=== PATIENT | female | born 1985 | race Caucasian/White ===

== ENCOUNTER 2022-09-22 10:09 | Inpatient (IN) | payer OTHER ==
[2022-09-21 11:36] VITALS: BMI 28.3
[2022-09-22] MEDS ORDERED: CARBOPROST TROMETHAMINE 250 MCG/ML 1 ML AMP IM PRN (10:35)
[2022-09-22] MEDS ORDERED: OXYTOCIN 10 UNIT/ML 1 ML VIAL IM PRN (10:35)
[2022-09-22] MEDS ORDERED: miSOPROStoL 200 MCG TAB PO PRN (10:35)
[2022-09-22] MEDS ORDERED: TRANEXAMIC ACID IN NACL,ISO-OS 1,000 MG in EMPTY BAG 1 BAG IV PRN (10:35)
[2022-09-22] MEDS ORDERED: CITRIC ACID-SODIUM CITRATE 15 ML CUP PO ONE (10:35)
[2022-09-22] MEDS ORDERED: METHYLERGONOVINE 0.2 MG/ML 1 ML AMP IM PRN (10:35)
[2022-09-22 11:09] LABS: Basophils % (A) 0 %; Eosinophils % (A) 1 %; HCT 31.4 % (34.0-46.0); HGB 10.4 gm/dL (11.4-16.0); Hypochromasia Slight; Lymphocytes # (A) 1.4 k/uL (1.0-4.8); Lymphocytes % (A) 22 %; MCH 27.5 pg (25.0-35.0); MCV 83.2 fL (80.0-100.0); Mean Platelet Volume 9.2; Monocytes # (A) 0.3 k/uL (0-1.0); Monocytes % (A) 5 %; Neutrophils # (A) 4.7 k/uL (1.3-7.7); Neutrophils % (A) 70 %; Platelet Count 246 k/uL (150-450); RBC 3.78 m/uL (3.80-5.40); RDW 14.7 % (11.5-15.5); WBC 6.6 k/uL (3.8-10.6)
[2022-09-22] MEDS ORDERED: LACTATED RINGERS 1,000 ML IV SCH (11:45)
[2022-09-22] MEDS ORDERED: ePHEDrine 50 MG/ML 1 ML VIAL ONE (12:08)
[2022-09-22] MEDS ORDERED: ONDANSETRON 4 MG/2 ML VIAL ONE (12:08)
[2022-09-22] MEDS ORDERED: KETOROLAC 15 MG/ML 1 ML VIAL ONE (12:08)
[2022-09-22] MEDS ORDERED: MORPHINE SULFATE (PF) 0.3 MG/0.3 ML SYR ONE (12:08)
[2022-09-22] MEDS ORDERED: NALBUPHINE 10 MG/ML (10 ML MDV) ONE (12:08)
[2022-09-22] MEDS ORDERED: OXYTOCIN 30 UNITS/500 ML NS BAG IV ONE (12:08)
--- NOTE | 2022-09-22 13:16 | P.HPOB ---
History of Present Illness H&P Date: 09/22/22 Chief Complaint: Scheduled primary section Mrs. Balbuena is a 31-year-old at 37 weeks and 0 days by LMP consistent with 9 week ultrasound who presents for scheduled primary lower transverse section for chelsea breech presentation and intrahepatic cholestasis of . She developed ICP at 24 weeks with bile acids at 14.6. Pruritus was managed with daily ursodiol 3 times a day and labs were trended every 4 weeks. Prior to delivery bile acids were 5.3 after several months of ursodiol use. The has been otherwise uncomplicated. After discussing the risks and benefits of external cephalic version versus section, the patient declined ECV in favor of a primary section. Obstetric history: 1 prior Maternal serologies: blood type O positive, antibody negative, rubella immune, VDRL non-reactive, HBsAg negative, HIV negative, 1 hour GTT 163, 3 hour GTT wnl, GBS positive. Past Medical History Past Medical History: Liver Disease Additional Past Medical History / Comment(s): Cholestatsis of . History of Any Multi-Drug Resistant Organisms: None Reported Additional Past Surgical History / Comment(s): LEEP Procedure. Past Anesthesia/Blood Transfusion Reactions: Previous Problems w/ Anesthesia Additional Past Anesthesia/Blood Transfusion Reaction / Comment(s): "Very sensitive to Labor Epidural, almost crashed, needed lower dose". "Mother is also very sensitive to anesthesia". Past Psychological History: No Psychological Hx Reported Smoking Status: Never smoker Past Alcohol Use History: Occasional Additional Past Alcohol Use History / Comment(s): No alcohol use during . Past Drug Use History: None Reported - Past Family History Mother Family Medical History: Hypertension Father Family Medical History: Diabetes Mellitus, Hypertension Medications and Allergies Home Medications Medication Instructions Recorded Confirmed Type Aspirin [Adult Low Dose Aspirin EC] 81 mg PO DAILY 09/21/22 09/22/22 History Vit No.179/Iron/Folic 1 each PO DAILY 09/21/22 09/22/22 History [ Tablet] ursodioL [Ursodiol] 300 mg PO TID 09/21/22 09/22/22 History Allergies Allergy/AdvReac Type Severity Reaction Status Date / Time No Known Allergies Allergy Verified 09/22/22 11:02 Exam Vital Signs Temp Pulse Resp BP Pulse Ox 09/22/22 10:35 97.6 F 110 H 14 110/69 98 Intake and Output 09/21/22 09/22/22 09/22/22 22:59 06:59 14:59 Other: Weight 77.111 kg Focused physical exam was performed. This is a healthy multigravida in no apparent distress. The patient has non-labored breathing, and she is warm and well-perfused. Abdomen is soft and nontender. Extremities are nontender and nonedematous. heart tones are reactive and reassuring. Results Result Diagrams: 09/22/22 10:58 Abnormal Lab Results - Last 24 Hours (Table) 09/22/22 Range/Units 10:58 RBC 3.78 L (3.80-5.40) m/uL Hgb 10.4 L (11.4-16.0) gm/dL Hct 31.4 L (34.0-46.0) % Assessment and Plan Assessment: 37-year-old 001 at 37 weeks presenting for scheduled primary lower transverse section for chelsea breech presentation and intrahepatic cholestasis of Plan: Admit, nothing by mouth, maintenance IV fluids, 2 g of Ancef ordered for surgical prophylaxis. Time with Patient: Less than 30 (15 minutes)
[2022-09-22] MEDS ORDERED: NALOXONE 0.4 MG/ML 1 ML VIAL IV PRN (13:29)
[2022-09-22] MEDS ORDERED: diphenhydrAMINE 50 MG/ML 1 ML VIAL IVP PRN ×2 (13:29)
[2022-09-22] MEDS ORDERED: METOCLOPRAMIDE 5 MG/ML 2 ML VIAL IVP PRN (13:29)
[2022-09-22] MEDS ORDERED: ONDANSETRON 4 MG/2 ML VIAL IVP PRN (13:29)
[2022-09-22] MEDS ORDERED: ZOLPIDEM 5 MG TAB PO PRN (13:29)
[2022-09-22] MEDS ORDERED: LANOLIN CREAM 5 GM TUBE TOPICAL PRN (13:29)
[2022-09-22] MEDS ORDERED: diphenhydrAMINE 50 MG CAP PO PRN (13:29)
[2022-09-22] MEDS ORDERED: SIMETHICONE 80 MG CHEWABLE PO PRN (13:29)
[2022-09-22] MEDS ORDERED: diphenhydrAMINE 25 MG CAP PO PRN (13:29)
--- NOTE | 2022-09-22 13:29 | P.OP ---
Date of Procedure: 09/22/22 Postoperative Diagnosis: 1. Term IUP at 37 weeks 2. Intrahepatic Cholestasis of 3. Chelsea breech presentation Procedure(s) Performed: Primary lower transverse section Implants: None Anesthesia: spinal Surgeon: [facility] Pharmacy Technician #1: Rosas Trivedi Estimated Blood Loss (ml): 980 IV fluids (ml): 1,000 Urine output (ml): 250 (clear) Pathology: other (placenta to pathology) Condition: stable Disposition: floor Indications for Procedure: This is a 37-year-old 001 at 37 weeks with a fetus that is in chelsea breech presentation and intrahepatic cholestasis of . Primary section was recommended to the patient for maternal and well-being. The risks of surgery were discussed with the patient including risk of bleeding, infection, damage to surrounding structures including bladder/bowel/ureters, and risk of postoperative DVT. The patient understands these risks and desires to proceed with primary section. The option of external cephalic version was discussed with the patient including the risks and benefits of that procedure and she opted for section. Operative Findings: Fetus in chelsea breech presentation. Colorless amniotic fluid. Viable female infant, apgars 7/9, weight 6#10oz. Normal uterus, bilateral fallopian tubes, and bilateral ovaries. Description of Procedure: The patient was taken to the operating room where spinal anesthesia was found to be adequate. 2 grams of Ancef were given for infection prophylaxis. She was prepared and draped in the dorsal supine position with a leftward tilt. A Pfannenstiel skin incision was made with the scalpel. The incision was carried down to the fascia The fascia was incised and extended laterally with Delgadillo scis sors. The superior aspect of the fascia was grasped with Esequiel clamps. The underlying rectus muscle was dissected off sharply with Delgadillo scissors. In a similar fashion, the inferior aspect of the fascia was elevated with Esequiel clamps and the rectus muscle and pyramidalis were dissected off. Excellent hemostasis was achieved with the bovie. The rectus muscle was in the midline down to the level of the pubic symphysis. Pre-peritoneal fatty tissue was bluntly dissected to expose the peritoneum. The peritoneum was found to be free of adherent bowel and entered sharply with Delgadillo scissors. The peritoneal incision was extended superiorly and inferiorly to the bladder reflection with good visualization of the bladder. The bladder blade was inserted and vesicouterine peritoneum was identified. Intraabdominal survey revealed scant, clear peritoneal fluid and the thinned-out lower uterine segment. The bladder blade was positioned to keep the bladder out of the operative field. The lower uterine segment was incised with a scalpel. The amniotic sac was ruptured with an Allis clamp and clear fluid was noted. The uterine incision was extended bluntly with lateral and upward traction. The fetus was in chelsea breech position. The buttocks was gently guided through the incision. The legs were flexed at the knee and swept through the incision. Once the scapula had been delivered, the fetus was turned to sweep out the arms. The head was then carefully delivered with gental fundal pressure. The mouth and nose were suctioned with a bulb. The cord was clamped and cut. The was handed off to the pediatric team. IV oxytocin was initiated to facilitate uterine contractions. The placenta was delivered intact with manual massage of uterine fundus. The uterus was then exteriorized and the inside of the uterus was gently wiped with a lap sponge to assure complete removal of placental membranes. The uterine incision was closed with a 0-Polysorb suture in a running locked fas hion. A second imbricating layer with 0-Polysorb was used in an imbricating fashion. The ovaries and tubes were found to be normal. The uterus, tubes, and ovaries were then gently returned to the abdominal cavity. The blood clots and fluid were wiped out of the abdomen and pelvis with moist laparotomy sponges. The uterine incision was reinspected and excellent hemostasis was noted. The fascial layer was closed with a 0-Vicryl suture. The subcutaneous layer was reapproximated with 2-0 Plain Gut. The skin was closed with 4-0 Monocryl in a subcuticular fashion. The patient tolerated the procedure well. All the counts were correct times two. The
[2022-09-22] MEDS ORDERED: OXYTOCIN 30 UNITS/500 ML NS 30 UNIT in SALINE 1 500ML.BAG IV SCH (13:30)
[2022-09-22] MEDS: KETOROLAC 15 MG/ML 1 ML VIAL IVP SCH ×2 (14:36→20:07)
[2022-09-22] MEDS: LACTATED RINGERS 1,000 ML IV SCH (14:36)
[2022-09-22] MEDS: ACETAMINOPHEN TAB 500 MG TAB PO SCH (16:21)
[2022-09-22] MEDS: SENNOSIDES-DOCUSATE SODIUM 1 EACH TAB PO SCH (20:09)
[2022-09-23] MEDS: ACETAMINOPHEN TAB 500 MG TAB PO SCH ×4 (00:54→16:38)
[2022-09-23] MEDS: KETOROLAC 15 MG/ML 1 ML VIAL IVP SCH ×3 (03:54→21:41)
[2022-09-23] MEDS: LACTATED RINGERS 1,000 ML IV SCH ×2 (03:58→21:40)
--- NOTE | 2022-09-23 06:04 | P.PN ---
Progress Note - Text Date: 09/23/2022 Time: 05:44 The patient is status post section Vital signs stable VAS: 1-2-10. Patient has no complaints of pain. The patient incurred some minimal itching yesterday, this itching is now subsiding. Pain meds to be managed by service.
[2022-09-23 06:17] LABS: Basophils % (A) 0 %; Eosinophils % (A) 1 %; HCT 33.3 % (34.0-46.0); HGB 10.4 gm/dL (11.4-16.0); Hypochromasia Moderate; Lymphocytes # (A) 1.2 k/uL (1.0-4.8); Lymphocytes % (A) 18 %; MCH 26.3 pg (25.0-35.0); MCHC 31.2 g/dL (31.0-37.0); MCV 84.2 fL (80.0-100.0); Mean Platelet Volume 11.2; Monocytes # (A) 0.3 k/uL (0-1.0); Monocytes % (A) 5 %; Neutrophils # (A) 4.8 k/uL (1.3-7.7); Neutrophils % (A) 74 %; Platelet Count 159 k/uL (150-450); RBC 3.96 m/uL (3.80-5.40); RDW 14.5 % (11.5-15.5); WBC 6.5 k/uL (3.8-10.6)
--- NOTE | 2022-09-23 08:49 | P.PNOBGPC ---
Subjective - Subjective Principal diagnosis: s/p scheduled primary section Interval history: The patient is doing well this morning and had no acute events overnight. She has no complaints this morning. She reports lochia heavier than menses, passing flatus, voiding without difficulty, ambulating, and eating/drinking without nausea or vomiting. She is her without difficulty. She denies chest pain, shortness of breathing, fevers, or chills overnight. She denies pain or swelling in the legs. She denies lightheadedness with ambulation. Patient reports: Reports appetite normal, Reports voiding normally, Reports pain well controlled, Reports ambulating normally : doing well, nursing well Objective - Vital Signs Latest vital signs: Vital Signs Temp Pulse Resp BP Pulse Ox 09/23/22 04:00 98 F 75 16 109/71 98 09/23/22 00:00 98.1 F 84 16 107/73 97 09/22/22 20:00 98.1 F 78 18 98/66 97 09/22/22 16:00 97.5 F L 84 16 113/63 98 09/22/22 15:00 98.0 F 97 16 122/70 98 09/22/22 14:30 82 16 120/68 98 09/22/22 14:00 100 16 94/66 100 09/22/22 13:45 85 16 109/68 100 09/22/22 13:30 109 H 16 117/53 100 09/22/22 13:15 104 H 16 106/55 100 09/22/22 13:00 96.8 F L 98 16 104/50 100 09/22/22 10:35 97.6 F 110 H 14 110/69 98 Intake and Output 09/22/22 09/23/22 09/23/22 22:59 06:59 14:59 Intake Total 200 Output Total 750 350 Balance -750 -150 Intake: Oral 200 Output: Urine 700 350 Uretheral (Medeiros) 600 Output, Quantitative 50 Blood Loss - Exam Extremities: Present: normal Abdomen: Present: normal appearance, soft Incision: Present: normal, dry, intact Uterus: Present: normal, firm - Labs Labs: Abnormal Lab Results - Last 24 Hours (Table) 09/22/22 09/23/22 Range/Units 10:58 05:26 RBC 3.78 L (3.80-5.40) m/uL Hgb 10.4 L 10.4 L (11.4-16.0) gm/dL Hct 31.4 L 33.3 L (34.0-46.0) % Assessment and Plan Assessment: 37 year old now POD#1 s/p scheduled 1LTCS 2/2 breech presentation and ICP at 37 weeks for viable female infant Plan: Continue inpatient management. Patient meeting post-operative milestones appropriately. Anticipate discharge home tomorrow.
[2022-09-23] MEDS: SENNOSIDES-DOCUSATE SODIUM 1 EACH TAB PO SCH ×2 (08:58→20:46)
[2022-09-23] MEDS: IBUPROFEN 600 MG TAB PO SCH ×2 (14:07→20:46)
[2022-09-24] MEDS: ACETAMINOPHEN TAB 500 MG TAB PO SCH ×3 (00:14→08:35)
[2022-09-24] MEDS: KETOROLAC 15 MG/ML 1 ML VIAL IVP SCH (00:18)
[2022-09-24] MEDS: IBUPROFEN 600 MG TAB PO SCH ×2 (00:18→03:56)
[2022-09-24] MEDS: SENNOSIDES-DOCUSATE SODIUM 1 EACH TAB PO SCH (08:35)
--- NOTE | 2022-09-24 09:14 | P.DS ---
Providers Date of admission: 09/22/22 10:09 Expected date of discharge: 09/24/22 Attending physician: Jena Montalvo MD Primary care physician: Stated None Hospital Course: This is a 37-year-old now 00 to postoperative day #2 status post primary section at 37 weeks for chelsea breech presentation and intrahepatic cholestasis of . She desires discharge home today. The patient is doing well this morning and had no acute events overnight. She has no complaints this morning. She reports minimal lochia, passing flatus, voiding without difficulty, ambulating, and eating/drinking without nausea or vomiting. Infant doing well at bedside, nursing well. She denies chest pain, shortness of breathing, fevers, or chills overnight. She denies pain or swelling in the legs. Postoperative restrictions are reviewed with the patient including pelvic rest for 6 weeks, no lifting heavier than 15 pounds for 6 weeks. The patient is encouraged to call the office if she experiences any heavy bleeding, foul-smelling discharge, breast complaints, or any if she has any other concerns. She will follow up in the office with in 2 weeks for postoperative exam. All questions are answered. Assessment: 37 year old now POD#2 s/p 1LTCS 2/2 chelsea breech presentation and ICP at 37 weeks gestational for viable female infant Patient Condition at Discharge: Good Plan - Discharge Summary Discharge Rx Participant: No New Discharge Prescriptions: No Action Vit No.179/Iron/Folic [ Tablet] 1 each PO DAILY ursodioL [Ursodiol] 300 mg PO TID Aspirin [Adult Low Dose Aspirin EC] 81 mg PO DAILY Discharge Medication List Aspirin [Adult Low Dose Aspirin EC] 81 mg PO DAILY 09/21/22 [History] Vit No.179/Iron/Folic [ Tablet] 1 each PO DAILY 09/21/22 [History] ursodioL [Ursodiol] 300 mg PO TID 09/21/22 [History] Follow up Appointment(s)/Referral(s): Jena Montalvo MD [STAFF PHYSICIAN] - 2 Weeks Patient Instructions/Handouts: (DC), Depression (DC), Bleeding (DC) Activity/Diet/Wound Care/Special Instructions: Pelvic rest for 6 weeks. No heavy lifting for 6 weeks. Discharge Disposition: HOME SELF-CARE
[2022-09-24 09:20] VITALS: BP 107/70; PULSE 80; RESP 16; TEMP 98.2
== END 2022-09-24 10:05 | disposition home or self-care (01) | DRG 787 ==
LOC: 4FBP 10:09
PROVIDERS: ADMIT Obstetrics & Gynecology; ATTEND Obstetrics & Gynecology
PROC: 10D00Z1 Extraction of Products of Conception, Low, Open Approach (ICD-10-PCS; principal; 2022-09-22 12:00)
DX: O32.1XX0 Maternal care for breech presentation, not applicable or unspecified (principal); O26.62 Liver and biliary tract disorders in childbirth; O99.824 Streptococcus B carrier state complicating childbirth; E78.79 Other disorders of bile acid and cholesterol metabolism; K76.89 Other specified diseases of liver; O99.73 Diseases of the skin and subcutaneous tissue complicating the puerperium; L29.9 Pruritus, unspecified; Z37.0 Single live birth; O99.284 Endocrine, nutritional and metabolic diseases complicating childbirth; Z3A.37 37 weeks gestation of pregnancy; Z79.82 Long term (current) use of aspirin
CPT/HCPCS: 85025; 86850; 86900; 86901